=== PATIENT | female | born 1955 | race Caucasian/White ===

== ENCOUNTER 2017-11-10 07:52 | Outpatient (CLI) | payer OTHER ==
[2017-11-10 10:28] LABS: #Basophils 0.1 thou/uL (0.0-0.2); #Eosinphils 0.1 thou/uL (0.0-0.7); #Lymphocytes 1.8 thou/uL (1.20-3.40); #Monocytes 0.6 thou/uL (0.11-0.59); #Neutrophils 3.7 thou/uL (1.40-6.50); %Basophils 1.1 % (0.0-1.0); %Eosinophils 1.7 % (0.0-10.0); %Lymphocytes 28.4 % (21.0-51.0); %Neutrophils 59.8 % (42.0-75.0); Hemoglobin 13.7 g/dL (12.0-16.0); Mean Corpuscular HGB CONC 32.9 g/dL (32.0-36.0); Mean Corpuscular Hemoglobin 31.4 pg (27.0-31.0); Mean Corpuscular Volume 95.6 fL (78.0-98.0); Mean Platelet Volume 6.9 fL (7.4-10.4); Platelet Count 217 thou/uL (130-400); RBC Distribution Width 12.2 % (11.5-14.5); Red Blood Cell (RBC) Count 4.36 mill/uL (4.20-5.40); White Blood Cell (WBC) Count 6.2 thou/uL (4.8-10.8)
[2017-11-10 10:51] LABS: Anion Gap 10 mmol/L (10-20); BUN (Urea Nitrogen) 21 mg/dL (9.8-20.1); Calc. Creatinine Clearance 0 mL/min (70-130); Calcium 10.2 mg/dL (7.8-10.44); Carbon Dioxide 27 mmol/L (22-29); Chloride 105 mmol/L (98-107); Estimated GFR-MDRD 65; Glucose 87 mg/dL (70-105); Potassium 4.2 mmol/L (3.5-5.1); Sodium 138 mmol/L (136-145)
--- NOTE | 2017-11-13 20:45 | EKG ---
Test Reason : Blood Pressure : / mmHG Vent. Rate : 060 BPM Atrial Rate : 060 BPM P-R Int : 182 ms QRS Dur : 096 ms QT Int : 472 ms P-R-T Axes : 041 -09 023 degrees QTc Int : 472 ms Poor data quality, interpretation may be adversely affected Normal sinus rhythm Possible Anterior infarct , age undetermined Abnormal ECG Confirmed by Nicol ROLAND ([id number]) on 11/13/2017 8:45:09 PM Referred By: JUAN J Confirmed By:Nicol ROLAND
== END 2017-11-10 07:53 | disposition home or self-care (01) ==
LOC: LABBT 07:52
PROVIDERS: ATTEND Orthopaedic Surgery
DX: Z01.818 Encounter for other preprocedural examination (principal)
CPT/HCPCS: 80048; 85025; 93005; 93010

== ENCOUNTER 2017-11-18 05:50 | Day surgery (SDC) | payer OTHER ==
[2017-11-10 08:15] VITALS: BMI 33.9
[2017-11-18] MEDS ORDERED: CEFAZOLIN/Water 2 GM/20 ML SYRINGE ONE (06:45)
[2017-11-18] MEDS ORDERED: Propofol 500 MG/50 ML VIAL ONE (06:46)
[2017-11-18] MEDS ORDERED: Bupivacaine HCl 0.5%/Epinephrine 1:200,000/PF 30 ml Vial ONE ×2 (07:03→12:52)
[2017-11-18] MEDS ORDERED: Midazolam HCl 2 mg/2 ml Vial ONE (09:38)
[2017-11-18] MEDS ORDERED: Fentanyl 100 MCG/2 ML VIAL ONE (09:38)
--- NOTE | 2017-11-18 11:18 | OP ---
PREOPERATIVE DIAGNOSIS: Medial meniscus tear, right knee. 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 SURGEON: Durga Cox M.D. ANESTHESIA: General. BLOOD LOSS: Minimal. SPECIMEN: None. DRAINS: None. COMPLICATIONS: None. DESCRIPTION OF PROCEDURE: The patient was taken to the operating room where general anesthesia was i nduced. Right leg was placed in leg dixon and prepped and draped in the usual sterile fashion. Sco pe was placed in the lateral portal and probe was placed in the medial portal. Findings were noted a s above. I did use a shaver and just did a small partial lateral meniscectomy. The medial meniscus had some extensive tearing. This was debrided with basket forceps. There was a large loose body, wh ich was removed from the medial compartment. The meniscus was smoothed with a shaver. The knee was irrigated out and looked for loose bodies and there were no loose bodies. I inspected the suprapatel lar pouch. Again, no other loose bodies. The knee was irrigated and drained. Sterile dressings jey lied.
[2017-11-18] MEDS ORDERED: Lidocaine 2% w/Epinephrine 1:200K 20 ML VIAL ONE (12:52)
== END 2017-11-18 12:03 | disposition home or self-care (01) ==
LOC: SDC 05:50
PROVIDERS: ATTEND Orthopaedic Surgery
PROC: 0SCC4ZZ Extirpation of Matter from Right Knee Joint, Percutaneous Endoscopic Approach (ICD-10-PCS; principal; 2017-11-18)
PROC: 0SBC4ZZ Excision of Right Knee Joint, Percutaneous Endoscopic Approach (ICD-10-PCS; principal; 2017-11-18)
DX: S83.281A Other tear of lateral meniscus, current injury, right knee, initial encounter (principal); S83.241A Other tear of medial meniscus, current injury, right knee, initial encounter; M94.261 Chondromalacia, right knee; E11.9 Type 2 diabetes mellitus without complications; E78.00 Pure hypercholesterolemia, unspecified; E06.3 Autoimmune thyroiditis; Z87.891 Personal history of nicotine dependence; Z79.899 Other long term (current) drug therapy; Z88.5 Allergy status to narcotic agent; Z88.8 Allergy status to other drugs, medicaments and biological substances; Z91.018 Allergy to other foods; Z91.041 Radiographic dye allergy status; W10.9XXA Fall (on) (from) unspecified stairs and steps, initial encounter
CPT/HCPCS: G8978-GP-CJ; G8979-GP-CJ; G8980-GP-CJ; J0670; J2250; J2704; J3010

== ENCOUNTER 2019-04-10 13:44 | Outpatient (CLI) | payer BC ==
--- NOTE | 2019-04-10 15:19 | ULT ---
FOCUSED ULTRASOUND OF THE LEFT RIGHT BREAST: 04/10/19 COMPARISON: None. HISTORY: Palpable abnormality in the upper outer right breast. TECHNIQUE: Focused ultrasound of the right breast in the area of palpable concern obtained. In addition, the rig ht axilla is assessed with ultrasound. FINDINGS: In the area of palpable concern, there is an ill-defined hypoechoic shadowing mass at the 10 o'clock position of the right breast approximately 8 cm from the nipple measuring in the 1.6 x 0.7 x 2.0 cm r dk. Focused imaging of the right axilla demonstrates no lymphadenopathy. IMPRESSION: BI-RADS 4: Suspicious Abnormality - Biopsy Should Be Considered Usually requires biopsy Ultrasound guided core biopsy of right breast mass advised. Results were discussed with the patient at the time of interpretation. Code T POS: MAY
--- NOTE | 2019-04-10 15:35 | MMO ---
Bilateral MAMMO Bilat Diag DDI+RADHA. CLINICAL HISTORY: Patient is 64 years old and is seen for diagnostic exam and palpable abnormality in the right breast. VIEWS: The views performed were: right craniocaudal with tomosynthesis; right mediolateral oblique with tomosynthesis; and right mediolateral with tomosynthesis. FILMS COMPARED: The present examination has been compared to prior imaging studies performed at at [facility] on 04/14/2010 and 04/10/2019. This study has been interpreted with the assistance of computer-aided detection. MAMMOGRAM FINDINGS: There are scattered fibroglandular densities. There is an irregular mass seen in the upper-outer region of the right breast. In the left breast, there are no suspicious masses, calcifications or areas of architectural distortion. IMPRESSION: MASS IN THE RIGHT BREAST IS SUSPICIOUS. AN ULTRASOUND-GUIDED BREAST BIOPSY IS RECOMMENDED. Dr. Johnson, as well as the patient, made aware of these findings and recommendation for biopsy at the time of interpretation on 04/10/2019. THE RESULTS OF THIS EXAM WERE SENT TO THE PATIENT. ACR BI-RADS Category 4 - Suspicious abnormality - biopsy should be considered MAMMOGRAPHY NOTE: 1. A negative mammogram report should not delay a biopsy if a dominant of clinically suspicious mass is present. 2. Approximately 10% to 15% of breast cancers are not detected by mammography. 3. Adenosis and dense breasts may obscure an underlying neoplasm. Reported by: ANIYAH BLANCO MD Electonically Signed: [id number]
== END 2019-04-10 13:45 | disposition home or self-care (01) ==
LOC: BICMAMMO 13:44
PROVIDERS: ATTEND Obstetrics & Gynecology
DX: N63.10 Unspecified lump in the right breast, unspecified quadrant (principal)
CPT/HCPCS: 77066; G0279

== ENCOUNTER → 2019-04-12 | Day surgery (SDC) | payer BC ==
--- NOTE | 2019-04-12 13:36 | MMO ---
Right Breast MAMMO Unilat Diag DDI RT. CLINICAL HISTORY: Patient is 64 years old and is seen for breast biopsy. The patient has no family history of breast cancer. The patient has no personal history of cancer. The patient has a history of right Ultrasound Guided Core Biopsy in April,. VIEWS: The views performed were: right craniocaudal and right mediolateral oblique. FILMS COMPARED: The present examination has been compared to prior imaging studies performed at [facility] on 04/10/2019. This study has been interpreted with the assistance of computer-aided detection. MAMMOGRAM FINDINGS: There is a biopsy clip seen in the upper-outer region of the right breast. IMPRESSION: BIOPSY CLIP IN THE RIGHT BREAST IS CONFIRMED UTILIZING POST PROCEDURE MAMMOGRAM. THE RESULTS OF THIS EXAM WERE SENT TO THE PATIENT. MAMMOGRAPHY NOTE: 1. A negative mammogram report should not delay a biopsy if a dominant of clinically suspicious mass is present. 2. Approximately 10% to 15% of breast cancers are not detected by mammography. 3. Adenosis and dense breasts may obscure an underlying neoplasm. Reported by: POWER SANTIZO MD Electonically Signed: [id number]
--- NOTE | 2019-04-12 14:02 | ULT ---
ULTRASOUND GUIDED CORE BIOPSY OF RIGHT BREAST MASS: DATE: 04/12/2019. HISTORY: Palpable mass in the upper outer right breast. FINDINGS: Informed consent was obtained prior to the procedure. Preprocedural imaging demonstrates an ill-defined poorly marginated hypoechoic mass with shadowing in the upper outer aspect of the right breast at the 10 o'clock position. The skin overlying this lesion was prepped and draped in normal sterile fashion and anesthetized with 1% buffered Lidocaine. With direct sonographic guidance, four 14-gauge core biopsies were obtained through the lesion. Post biopsy clip was then placed and confirmed to be in proper position on postprocedural mammography. The patient tolerated the procedure well. IMPRESSION: Successful ultrasound-guided core biopsy of right breast mass at the 10 o'clock position as above. POS: ROBB
== END ==
LOC: BICULT 12:25
PROVIDERS: ATTEND Obstetrics & Gynecology
PROC: 0H9T3ZX Drainage of Right Breast, Percutaneous Approach, Diagnostic (ICD-10-PCS; principal; 2019-04-12)
DX: C50.411 Malignant neoplasm of upper-outer quadrant of right female breast (principal); Z88.5 Allergy status to narcotic agent; Z88.8 Allergy status to other drugs, medicaments and biological substances; Z91.018 Allergy to other foods
CPT/HCPCS: 19083; 88305; 88341; 88342